=== PATIENT | female | born 1990 | race Caucasian/White ===

== ENCOUNTER → 2019-12-26 | Outpatient (CLI) | payer OTHER | END | disposition home or self-care (01) | LOC: LABWHC1 14:59 | PROVIDERS: ATTEND Obstetrics & Gynecology | DX: N91.2 Amenorrhea, unspecified (principal) | CPT/HCPCS: 36415; 84702 ==

== ENCOUNTER → 2020-02-29 | Outpatient (CLI) | payer OTHER ==
[2020-02-29 11:12] LABS: HCT 39.1 % (34.0-46.0); HGB 12.5 gm/dL (11.4-16.0); MCH 30.6 pg (25.0-35.0); MCV 95.5 fL (80.0-100.0); Mean Platelet Volume 8.2; Platelet Count 320 k/uL (150-450); RDW 11.9 % (11.5-15.5)
[2020-02-29 17:17] LABS: Estradiol 92.2 pg/mL; Prolactin 6.3 ng/mL (2.8-29.2)
[2020-02-29 17:18] LABS: Follicle Stimulating Hormone 6.6 mIU/mL
[2020-02-29 17:20] LABS: Progesterone 0.3 ng/mL
== END | disposition home or self-care (01) ==
LOC: LABWHC1 10:20
PROVIDERS: ATTEND Obstetrics & Gynecology
DX: N93.8 Other specified abnormal uterine and vaginal bleeding (principal); Z13.29 Encounter for screening for other suspected endocrine disorder
CPT/HCPCS: 36415; 82670; 83001; 84144; 84146; 84439; 84443; 84479; 85027

== ENCOUNTER → 2020-04-16 | Outpatient (CLI) | payer OTHER ==
[2020-04-16 17:50] LABS: Estradiol 67.4 pg/mL; Luteinizing Hormone 5.7 mIU/mL
[2020-04-16 17:51] LABS: Follicle Stimulating Hormone 6.2 mIU/mL
== END | disposition home or self-care (01) ==
LOC: LABWHC1 10:53
PROVIDERS: ATTEND Obstetrics & Gynecology
DX: N93.8 Other specified abnormal uterine and vaginal bleeding (principal)
CPT/HCPCS: 36415; 82670; 83001; 83002

== ENCOUNTER → 2020-05-04 | Outpatient (CLI) | payer OTHER | END | disposition home or self-care (01) | LOC: LABMAIN 13:54 | PROVIDERS: ATTEND Obstetrics & Gynecology | DX: N93.8 Other specified abnormal uterine and vaginal bleeding (principal) | CPT/HCPCS: 36415; 84144 ==